=== PATIENT | female | born 1980 | race Caucasian/White ===

== ENCOUNTER 2019-10-06 12:02 | Emergency (ER) | payer MEDICAID, OTHER ==
[2019-10-06 12:05] VITALS: BP 116/67
[2019-10-06] MEDS ORDERED: ACETAMINOPHEN 325 MG TAB PO ONE ×2 (12:20→12:30)
[2019-10-06] MEDS ORDERED: cefTRIAXone SOD 1,000 MG VL IM ONE (14:30)
== END 2019-10-06 14:54 | disposition home or self-care (01) ==
LOC: ER 12:13
DX: J20.9 Acute bronchitis, unspecified (principal); H66.93 Otitis media, unspecified, bilateral
CPT/HCPCS: 71046; 96372; 99283; J0696

== ENCOUNTER 2021-12-23 03:39 | Emergency (ER) | payer MEDICAID ==
[~2021-12-23] VITALS: Ht 160 cm; Wt 68.0 kg
[2021-12-23 03:40] VITALS: BP 102/72
== END 2021-12-23 07:45 | disposition left against medical advice (07) ==
LOC: ER 03:39
DX: M79.605 Pain in left leg (principal); Z53.21 Procedure and treatment not carried out due to patient leaving prior to being seen by health care provider